=== PATIENT | male | born 1975 | race Caucasian/White ===

== ENCOUNTER 2024-10-03 19:33 | Emergency (ER) | payer MEDICARE ==
[~2024-10-03] VITALS: Ht 177.8 cm; Wt 90.7 kg
[~2024-10-03 19:33] MED LIST: AMOX500 PO; CYCL10 PO; DIAZ10 PO; HYDACE5 PO; IBUP800 PO; NAPR500 PO; OXYACE5T PO; PROM25 PO; RXHYDACE PO; TRAM50 PO
[2024-10-03] MEDS ORDERED: Ketorolac Tromethamine 15mg Vial IV ONE (19:55)
[2024-10-03] MEDS ORDERED: Acetaminophen 325 MG TABLET PO ONE (20:00)
[2024-10-03] MEDS ORDERED: HYDROcodone 5-APAP 325 TAB PO ONE (21:05)
[2024-10-03] MEDS ORDERED: RX Prepack 6 Tabs Oxycodone 5mg UD ONE (21:35)
[2024-10-03] MEDS ORDERED: OXAYDO5 M9 PO (21:37)
[2024-10-03] MEDS ORDERED: MOBIC15 MG PO (21:37)
== END 2024-10-03 21:55 | disposition home or self-care (01) ==
LOC: ER 19:33
DX: M54.16 Radiculopathy, lumbar region (principal)
CPT/HCPCS: 96374; 99282-25; A9270; J1885